=== PATIENT | male | born 1950 | race Caucasian/White ===

== ENCOUNTER 2021-01-27 21:13 | Emergency (ER) | payer OTHER ==
[~2021-01-27] VITALS: Ht 175.3 cm; Wt 70.3 kg
[2021-01-27 21:26] VITALS: BP_SYST 126
[2021-01-27 21:36] VITALS: BP_SYST 126
[2021-01-27] MEDS ORDERED: DIPH-TET-PERTUS Vaccine 0.5 ML VIAL (ADACEL) I.M. ONE (21:45)
== END 2021-01-27 22:30 | disposition home or self-care (01) ==
LOC: SED 21:13
DX: S01.01XA Laceration without foreign body of scalp, initial encounter (principal); W22.8XXA Striking against or struck by other objects, initial encounter; Y93.89 Activity, other specified; Y92.89 Other specified places as the place of occurrence of the external cause; Y99.8 Other external cause status
CPT/HCPCS: 90715; 99282; 99283

== ENCOUNTER 2021-01-29 05:33 | Emergency (ER) | payer OTHER, SELFPAY ==
[~2021-01-29] VITALS: Ht 175.3 cm; Wt 70.3 kg
[2021-01-29 05:33] VITALS: BP_SYST 110
[2021-01-29 06:26] LABS: BASOPHILS # (AUTO) 0.1 K/uL (0.0-0.2); BASOPHILS % (AUTO) 1.2 % (0.0-2.0); EOSINOPHILS # (AUTO) 0.3 K/uL (0.0-0.4); EOSINOPHILS % (AUTO) 5.7 % (0.0-4.0); HEMATOCRIT 38.9 % (36-54); HEMOGLOBIN 13.3 g/dL (14.0-18.0); LYMPHOCYTES # (AUTO) 2.5 K/uL (1.0-5.5); LYMPHOCYTES % (AUTO) 41.3 % (20.5-51.5); MEAN CORPUSCULAR HEMOGLOBIN 31 pg (27-31); MEAN CORPUSCULAR HGB CONC 34 % (32-36); MEAN CORPUSCULAR VOLUME 90 fL (79.0-98.0); MONOCYTES # (AUTO) 0.5 K/uL (0.0-1.0); MONOCYTES % (AUTO) 8.1 % (1.7-9.3); NEUTROPHILS # (AUTO) 2.6 K/uL (1.8-7.7); NEUTROPHILS % (AUTO) 43.7 % (40.0-70.0); PLATELET COUNT (AUTO) 267 K/uL (130-430); RED BLOOD CELL COUNT(AUTO) 4.33 MIL/uL (4.2-6.2)
[2021-01-29 06:36] LABS: ANION GAP 8 (5-15); CALCIUM 8.1 mg/dL (8.4-11.0); CHLORIDE 104 mmol/L (98-107); CREATININE 0.82 mg/dL (0.55-1.30); GLUCOSE 84 mg/dL (70-99); POTASSIUM 3.2 mmol/L (3.5-5.1); SODIUM SERUM 140 mmol/L (136-145); UREA NITROGEN, BLOOD 15 mg/dL (8-21)
[2021-01-29 06:40] LABS: GFR AFRICAN AMERICAN 120 mL/min (>90)
[2021-01-29 06:51] LABS: ALANINE AMINOTRANSFERASE 16 U/L (12-78); ALBUMIN 3.6 g/dL (3.4-4.8); ASPARTATE AMINOTRANSFERASE 17 U/L (10-37); C-REACTIVE PROTEIN QUANT < 0.2 mg/dL (0-0.5); LACTATE DEHYDROGENASE 188 U/L (85-227); TOTAL BILIRUBIN 0.5 mg/dL (0.0-1.0)
[2021-01-29] MEDS ORDERED: ZIT250 PO (07:27)
[2021-01-29] MEDS ORDERED: ALBU8.5H8 INH (07:27)
[2021-01-29] MEDS ORDERED: PRED20TA PO (07:27)
[2021-01-29 07:35] LABS: FIBRINOGEN 345 mg/dL (200-400)
[2021-01-29 07:42] VITALS: BP_SYST 110
== END 2021-01-29 07:35 | disposition home or self-care (01) ==
LOC: SED 05:33
DX: J40 Bronchitis, not specified as acute or chronic (principal); E11.9 Type 2 diabetes mellitus without complications; Z20.822 Contact with and (suspected) exposure to COVID-19
CPT/HCPCS: 36415; 71045; 80053; 82550; 82728; 82962; 83605; 83615; 83880; 84484; 85025; 85379; 85384; 86140; 87040-TC; 93005; 99283; 99285